=== PATIENT | male | born 1945 | race Caucasian/White ===

== ENCOUNTER → 2019-08-24 | Outpatient (CLI) | payer OTHER, MEDICARE ==
[~2019-08-24] MED LIST: ACYCLOVIR 800800 MG PO; AMARYL4 MG PO; CARDURA4 MG PO; COZAAR 25 MG TA25 M1 PO; DEMADEX20 MG PO; HYDRALAZINE 5050 MG PO; JARDIANCE10 MG PO; LIPITOR40 MG PO; METFORMIN HCL500 M1 PO; OMEPRAZOLE40 MG PO; POTASSIUM20 PO; VIREAD300 MG PO; XARELTO15 MG PO; XARELTO20 MG PO
== END ==
LOC: SJCVC 11:06
PROVIDERS: ATTEND Internal Medicine Cardiovascular Disease
DX: Z51.81 Encounter for therapeutic drug level monitoring (principal); I48.20 Chronic atrial fibrillation, unspecified; K21.9 Gastro-esophageal reflux disease without esophagitis; I25.10 Atherosclerotic heart disease of native coronary artery without angina pectoris; E11.22 Type 2 diabetes mellitus with diabetic chronic kidney disease; I12.9 Hypertensive chronic kidney disease with stage 1 through stage 4 chronic kidney disease, or unspecified chronic kidney disease; N18.3 Chronic kidney disease, stage 3 (moderate); E78.00 Pure hypercholesterolemia, unspecified; Z79.01 Long term (current) use of anticoagulants

== ENCOUNTER → 2019-08-27 | Outpatient (CLI) | payer OTHER, MEDICARE | LOC: SJCVCIMAG 11:01 | PROVIDERS: ATTEND Internal Medicine Cardiovascular Disease | DX: I08.8 Other rheumatic multiple valve diseases (principal); I27.20 Pulmonary hypertension, unspecified; J90 Pleural effusion, not elsewhere classified; I48.20 Chronic atrial fibrillation, unspecified; R00.1 Bradycardia, unspecified; I13.10 Hypertensive heart and chronic kidney disease without heart failure, with stage 1 through stage 4 chronic kidney disease, or unspecified chronic kidney disease; E11.22 Type 2 diabetes mellitus with diabetic chronic kidney disease; N18.3 Chronic kidney disease, stage 3 (moderate); R94.31 Abnormal electrocardiogram [ECG] [EKG]; I25.10 Atherosclerotic heart disease of native coronary artery without angina pectoris; R79.1 Abnormal coagulation profile; E78.00 Pure hypercholesterolemia, unspecified; B18.1 Chronic viral hepatitis B without delta-agent; I87.2 Venous insufficiency (chronic) (peripheral); I48.0 Paroxysmal atrial fibrillation; Z82.49 Family history of ischemic heart disease and other diseases of the circulatory system; Z79.899 Other long term (current) drug therapy; Z79.84 Long term (current) use of oral hypoglycemic drugs ==

== ENCOUNTER 2019-09-03 06:23 | Observation (INO) | payer OTHER, MEDICARE ==
[~2019-09-03] VITALS: Ht 177.8 cm; Wt 121.1 kg
[2019-09-03 07:39] VITALS: BP 152/66
[2019-09-03] MEDS ORDERED: ACYCLOVIR 800800 MG PO (07:45)
[2019-09-03] MEDS ORDERED: LIPITOR40 MG PO (07:45)
[2019-09-03] MEDS ORDERED: AMARYL4 MG PO (07:46)
[2019-09-03] MEDS ORDERED: CARDURA4 MG PO (07:46)
[2019-09-03] MEDS ORDERED: JARDIANCE10 MG PO (07:47)
[2019-09-03] MEDS ORDERED: HYDRALAZINE 5050 MG PO (07:47)
[2019-09-03] MEDS ORDERED: COZAAR 25 MG TA25 M1 PO (07:48)
[2019-09-03] MEDS ORDERED: POTASSIUM20 PO (07:49)
[2019-09-03] MEDS ORDERED: METFORMIN HCL500 M1 PO (07:49)
[2019-09-03] MEDS ORDERED: OMEPRAZOLE40 MG PO (07:49)
[2019-09-03] MEDS ORDERED: XARELTO20 MG PO (07:50)
[2019-09-03] MEDS ORDERED: DEMADEX20 MG PO (07:51)
[2019-09-03] MEDS ORDERED: VIREAD300 MG PO (07:51)
[2019-09-03 07:57] LABS: HEMATOCRIT 35.6 % (42.0-52.0); HEMOGLOBIN 11.9 gm/dL (14.0-18.0); MCH 32.9 pg (26.0-34.0); MCHC 33.4 g/dL (28.0-37.0); MCV 98.5 fL (80.0-100.0); RBC 3.62 mil/uL (4.50-6.00); RDW 17.2 % (10.5-14.5); WBC 4.4 thou/uL (4.0-11.0)
--- NOTE | 2019-09-03 08:17 | EKG ---
[facility] [place] [address] ELECTROCARDIOGRAM REPORT Name: BARBARA MERAZ Room #: [facility]..#: [id number] Admission: 09/03/19 Attend Phys: Karthikeyan Mcfadden MD, Discharge: Date of : 45 Report #: [id number] THIS REPORT FOR: cc: Ryan Kelly MD, Darren E. MD Lundgren,Jaspreet Palmer MD [facility] ~ THIS REPORT FOR: //name// [facility] Test Date: 2019-09-03 Test Time: 07:40:24 Pat Name: BARBARA MERAZ Department: Room: Gender: M [employer] Work[employer]: SBYAMEL : 1945 Requested By: Karthikeyan Mcfadden Order Number: [id number] MD: Jaspreet Zacarias Measurements Intervals [place] Rate: 59 P: VT: QRS: 27 QRSD: 96 T: 253 QT: 486 QTc: 482 Interpretive Statements Atrial fibrillation Low voltage, extremity leads Minimal ST depression, lateral leads Borderline prolonged QT interval Compared to ECG 02/21/2008 07:36:43 Atrial fibrillation has replaced sinus rhythm Electronically Signed On 09-03-2019 8:17:42 CDT by Jaspreet Zacarias [email or web address] <ELECTRONICALLY SIGNED> By: Jaspreet Zacarias MD, [facility] 09/03/19 0817 9 9 Jaspreet Zacarias MD, [facility] /EPI
[2019-09-03 08:18] LABS: CALCIUM 9.1 mg/dL (8.5-10.1); CREATININE 1.4 mg/dL (0.7-1.3); POTASSIUM 3.5 mmol/L (3.5-5.1)
[2019-09-03 08:20] LABS: INR 1.2; PROTIME 12.3 Seconds (9.3-11.4)
[2019-09-03 12:15] VITALS: BP 154/65
[2019-09-03 15:48] VITALS: BP 124/55
--- NOTE | 2019-09-03 18:14 | NUR ---
PT WAS ADMITTED AT 1215 FROM [facility], PT WAS SUPPOSED TO BE DISCHARGED, BUT THEY DECIDED TO KEEP HIM FOR AGGRESSIVE DIURESIS. PT GROIN SITE SOFT, DRY, PULSATILE, NO BLEEDING AND NO HEMATOMA. PT WAS OFF BEDREST AND UP TO CHAIR AT 1300. PT SITE CHECKS CONTINUED TO BE WNL. PT THIS EVENING CONCERNED ABOUT HEPATITIS MEDICATIONS, PAGED DR DAVILA AND ORDERS RECEIVED.
[2019-09-03 19:19] VITALS: BP 125/63
[2019-09-04 00:15] VITALS: BP 141/65
--- NOTE | 2019-09-04 03:36 | NUR ---
PT IS ALERT AND ORIENTED X4. DENIES ANY PAIN SOME EDUCATION DONE IN REGARDS TO CHF FLUID RESTRICTION NOTED. PLAN OF CARE DISCUSSED WITH PT. VOIDS PER URINAL AT BEDSIDE. UNDERSTANING A LITTLE BETTER WITH SOME EDUCATION GIVEN IN REGARDS TO DIAGNOSIS AND CARE PLAN GOALS. VERBALIZED UNDERSTANDING. WILL CONTINUE TO ASSESS AND MONITOR PER NURSING.
[2019-09-04 05:39] LABS: HEMOGLOBIN 11.1 gm/dL (14.0-18.0); MCH 32.2 pg (26.0-34.0); MCHC 32.7 g/dL (28.0-37.0); MCV 98.5 fL (80.0-100.0); RBC 3.45 mil/uL (4.50-6.00); RDW 17.5 % (10.5-14.5); WBC 3.9 thou/uL (4.0-11.0)
[2019-09-04 06:02] LABS: ALBUMIN 3.5 g/dL (3.4-5.0); CALCIUM 8.5 mg/dL (8.5-10.1); CREATININE 1.3 mg/dL (0.7-1.3); POTASSIUM 3.5 mmol/L (3.5-5.1); TOTAL BILIRUBIN 1.5 mg/dL (0.2-1.0); TOTAL PROTEIN 7.1 g/dL (6.4-8.2)
[2019-09-04 07:12] VITALS: BP 137/67
[2019-09-04] MEDS ORDERED: XARELTO15 MG PO (09:39)
[2019-09-04 10:23] VITALS: BP 137/67
--- NOTE | 2019-09-04 10:26 | NUR ---
TEL AND IV DISCONTINUED. PT UNDERSTANDS ALL FOLLOW UP ORDER AND MEDS. WILL DISCHARGE TO HOME WITH [facility] TO HOME VIA PRIVATE VEHICLE.
--- NOTE | 2019-09-04 18:44 | H ---
[facility] [place] [address] HISTORY AND PHYSICAL Name: BARBARA MERAZ Room #: 219-P [facility] Kala Marshall#: [id number] Admission: 09/03/19 Attend Phys: Karthikeyan Mcfadden MD, Discharge: 09/04/19 Date of : 45 Report #: [id number] THIS REPORT FOR: cc: Ryan Kelly MD, Darren E. MD Mancuso, Gerald M. MD [facility] ~ CC: Ryan Mcfadden DATE OF SERVICE: 09/03/2019 CARDIOLOGY HISTORY AND PHYSICAL HISTORY OF PRESENT ILLNESS: The patient is a 74-year-old male known to myself. He was brought to the catheterization lab this morning with some progressive dyspnea, shortness of breath and some chest pains. He has permanent atrial fibrillation, anticoagulated. His anticoagulant has been held for 48 hours. Last cardiac catheterization was 2008. There has been no prior coronary intervention. His ejection fraction has been mildly reduced. Subsequently, brought to the catheterization lab, which revealed significant pulmonary hypertension, presumably consistent with volume overload. PA pressure is running 96/38 with a pulmonary capillary wedge mean of 36, certainly consistent with significant volume overload and I suspect this is multifactorial, obesity, sleep apnea, diabetes, dietary indiscretion. He will be admitted for aggressive diuresis. He has significant orthopnea and PND. He is not really able to lay flat at night. He has been compliant with his medications. We have tried oral diuretics up to 40 of torsemide with marginal success obviously, as we have significant volume overload. CURRENT MEDICATIONS: Aspirin, atorvastatin 40, acyclovir, doxazosin 4, glimepiride 4, Jardiance 10, losartan 25, metformin 500 t.i.d., potassium, Xarelto 20 held, Ozempic, Viread, and torsemide 20. PAST MEDICAL HISTORY: Positive for coronary artery disease; mild cardiomyopathy; diabetes; sleep apnea; permanent AFib; hypertension; hypercholesterolemia; hepatitis B, he takes Viread for this; long history of recurrent diastolic dysfunction and tonsillectomy. SOCIAL HISTORY: He lives with a significant other. Never tobacco user. No alcohol use or drug use. One cup of coffee a day. No exercise. FAMILY HISTORY: Father had an infarct in his 50s. REVIEW OF SYSTEMS: Negative except for this progressive dyspnea, some orthopnea and some hesitancy and as stated above. [facility] [address] [place] [address] HISTORY AND PHYSICAL Name: BARBARA MERAZ Room #: 219-P [facility] Kala Marshall#: [id number] Admission: 09/03/19 Attend Phys: Karthikeyan Mcfadden MD, Discharge: 09/04/19 Date of : 45 Report #: [id number] PHYSICAL EXAMINATION: GENERAL: He is in no acute distress, but chronically dyspneic. VITAL SIGNS: Blood pressure is 180/90, pulse 70s and irregular. HEENT: Eyes reveal xanthelasmas. Pharynx is clear. NECK: Shows preserved upstrokes. 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 LUNGS: Clear anteriorly, but crackles in the bases and diminished. CARDIAC: Irregularly irregular, S1, S2 distant. ABDOMEN: Obese, nontender. EXTREMITIES: Reveal trace edema. Some venous stasis changes. NEUROLOGIC: Nonfocal. SKIN: Warm and dry without xanthoma or ulcer. MUSCULOSKELETAL: Generalized arthritic changes. ASSESSMENT: 1. Acute on chronic diastolic heart failure. 2. Severe pulmonary hypertension secondary to above. Right heart catheterization. PA pressure 96/36. Pulmonary capillary wedge mean 36. 3. Hypertension. 4. Hypercholesterolemia. 5. Sleep apnea. 6. Permanent atrial fibrillation. 7. Mild coronary artery disease, catheterization today. No intervention. RECOMMENDATIONS AND PLAN: We will admit for aggressive diuresis, mobilization of this fluid. I suspect we are having issues with elevated protimes due to passive congestion. Clears the interaction between Xarelto and protime INRs which have been elevated on the Xarelto, but they normalize off Xarelto. I have discussed this with Dr. Brandon of GI. We will ask hematology to weigh in. Daily weights, salt and fluid restriction, CCU for telemetry, electrolyte monitoring. Thank you for asking me to assist in the care of this patient. <ELECTRONICALLY SIGNED> By: Karthikeyan Mcfadden MD, FACC 09/04/19 1844 0942 1022 Karthikeyan Mcfadden MD, FACC /nt
--- NOTE | 2019-09-07 09:05 | CATHLAB ---
[facility] [place] [address] INVASIVE PROCEDURE REPORT Name: BARBARA MERAZ Room #: 219-P [facility] Kala Marshall#: [id number] Admission: 09/03/19 Attend Phys: Karthikeyan Mcfadden MD, Discharge: 09/04/19 Date of : 45 Report #: [id number] THIS REPORT FOR: cc: Ryan Kelly MD, Darren E. MD Mancuso, Gerald M. MD [facility] ~ APPROVED REPORT Study performed: 09/03/2019 07:41:07 Patient Details Patient Status: Out-Patient Room #: The patient is a 74 year-old male Event Personnel oYsvany Avina RN RN, Addi Jones RTR Renny Bob Sherra RTR Monitor, Karthikeyan Mcfadden Body Man Procedures Performed Art Access - R femoral artery* Wilberto Access - R femoral vein Right and Left Heart Cath w/or w/o Coronarie [id number] [facility] [id number] Initial Mod Sed Same Phys/QHP Gr [id number] 60000 Mod Sed Same Phys/QHP Ea [id number] Hemostasis w/ Mynx Indication Chest pain Procedure Narrative The Right Groin^ was infiltrated with subcutaneous anesthesia. A Right Heart Catheterization was performed with a 7 Fr. Leawood-Yonis catheter and pressure were recorded. Cardiac outputs were obtained by the Thermal Dilution method. A PINNACLE 6FR Sheath #[id number] sheath was inserted into the RFA 6 FR^. Coronary angiography was performed using coronary diagnostic catheters. The right coronary system was accessed and visualized with a JR4 catheter. The left coronary system was accessed and visualized with a JL4 catheter. The left ventricle was accessed and visualized with a PIGTAIL catheter. Left ventriculogram was performed in 30 degree projection. An aortogram of the abdominal aorta was performed. Closure device was deployed with a 6 Fr MYNXGRIP 6/7F #[id number]. The patient tolerated the procedure well and there were no complications associated with the procedure. There was no hematoma. Intraoperative Conscious Sedation [facility] [address] [place] [address] INVASIVE PROCEDURE REPORT Name: BARBARA MERAZ Room #: 219-P [facility] [place] [facility]#: [id number] Admission: 09/03/19 Attend Phys: Karthikeyan Mcfadden, Discharge: 09/04/19 Date of : 45 Report #: [id number] Sedation start time: 859 Case end Time: 946 Fentanyl 100 mcg Versed 2 mg Fluoro Time: 4.20 minutes Dose: DAP 8898.10 cGycm2 767 mGy Contrast Type and Amount: Visipaque 105 ml Hemodynamics The right atrial mean pressure is 33 mmHg. The right ventricular pressure is 94/22 mmHg. The pulmonary artery pressure is 90/38 mmHg with a mean of 58 mmHg. The mean pulmonary capillary wedge pressure is 40 mmHg. The aortic pressure is 172/93 mmHg with a mean of 124 mmHg. The left ventricular pressure is 178/16 mmHg with a mean of mmHg. The left ventricular end diastolic pressure is 29 mmHg. The cardiac output using thermo method is 7.70 L/min. The cardiac index using thermo method is 3.30 L/min/m2. Conclusion 1. Successful right heart catheterization with cardiac output by thermodilution see above hemodynamics. #2 left main large free of disease giving rise to LAD and circumflex #3 the LAD is mildly diseased in the mid distal vessel otherwise widely patent. It extends around the apex. #4 circumflex OM is nondominant with mild disease #5 dominant right coronary with mild irregularities PDA and MIKHAIL are small diffusely diseased. #6 normal left ventricular size ejection fraction mildly reduced EF in the 50% range. No wall motion abnormality Recommendations and plan: Continue aggressive risk factor modification. Will need aggressive diuresis. Transfer back to CCU instead stable condition. <ELECTRONICALLY SIGNED> By: Karthikeyan Mcfadden MD, FACC 09/07/19904 4 4 Karthikeyan Mcfadden MD, FACC /INF
== END 2019-09-04 11:41 | disposition home or self-care (01) ==
LOC: CATH 06:23 → 2N 12:26 → CATH 13:28 → 2N 09-04 11:41
PROVIDERS: Nurse Practitioner Adult Health; ADMIT Internal Medicine Cardiovascular Disease; ATTEND Internal Medicine Cardiovascular Disease
DX: I25.10 Atherosclerotic heart disease of native coronary artery without angina pectoris (principal); I11.0 Hypertensive heart disease with heart failure; I50.33 Acute on chronic diastolic (congestive) heart failure; I27.20 Pulmonary hypertension, unspecified; E78.00 Pure hypercholesterolemia, unspecified; I48.21 Permanent atrial fibrillation; G47.30 Sleep apnea, unspecified; I42.9 Cardiomyopathy, unspecified; Z86.19 Personal history of other infectious and parasitic diseases

== ENCOUNTER → 2019-10-07 | Outpatient (CLI) | payer OTHER, MEDICARE | LOC: SJCVC 12:01 | PROVIDERS: ATTEND Internal Medicine Cardiovascular Disease | DX: R94.31 Abnormal electrocardiogram [ECG] [EKG] (principal); I48.20 Chronic atrial fibrillation, unspecified; I25.10 Atherosclerotic heart disease of native coronary artery without angina pectoris; E11.9 Type 2 diabetes mellitus without complications; I87.2 Venous insufficiency (chronic) (peripheral); K76.9 Liver disease, unspecified; E78.00 Pure hypercholesterolemia, unspecified; I11.0 Hypertensive heart disease with heart failure; I50.9 Heart failure, unspecified; G47.33 Obstructive sleep apnea (adult) (pediatric); D68.59 Other primary thrombophilia; Z79.899 Other long term (current) drug therapy ==

== ENCOUNTER → 2019-10-28 | Outpatient (CLI) | payer OTHER, MEDICARE ==
[2019-10-28 10:08] LABS: CALCIUM 9.2 mg/dL (8.5-10.1); CREATININE 1.3 mg/dL (0.7-1.3); POTASSIUM 3.7 mmol/L (3.5-5.1)
== END ==
LOC: CAT 09:17
PROVIDERS: ATTEND Internal Medicine Cardiovascular Disease
DX: J90 Pleural effusion, not elsewhere classified (principal); I26.99 Other pulmonary embolism without acute cor pulmonale; Z01.812 Encounter for preprocedural laboratory examination; R16.0 Hepatomegaly, not elsewhere classified; I51.7 Cardiomegaly; I25.10 Atherosclerotic heart disease of native coronary artery without angina pectoris; R18.8 Other ascites; M47.814 Spondylosis without myelopathy or radiculopathy, thoracic region

== ENCOUNTER → 2019-10-29 | Outpatient (CLI) | payer OTHER, MEDICARE | LOC: SJCVCIMAG 08:10 | PROVIDERS: ATTEND Internal Medicine Cardiovascular Disease | DX: I07.1 Rheumatic tricuspid insufficiency (principal); I27.20 Pulmonary hypertension, unspecified; J90 Pleural effusion, not elsewhere classified; I25.10 Atherosclerotic heart disease of native coronary artery without angina pectoris; M79.89 Other specified soft tissue disorders; M79.604 Pain in right leg; M79.605 Pain in left leg; I48.20 Chronic atrial fibrillation, unspecified; E11.9 Type 2 diabetes mellitus without complications; I87.2 Venous insufficiency (chronic) (peripheral); K76.9 Liver disease, unspecified; I11.0 Hypertensive heart disease with heart failure; I50.9 Heart failure, unspecified; G47.33 Obstructive sleep apnea (adult) (pediatric); Z79.899 Other long term (current) drug therapy ==

== ENCOUNTER → 2019-11-04 | Outpatient (CLI) | payer OTHER, MEDICARE ==
[2019-11-04 12:01] LABS: ABSOLUTE NEUTROPHILS 3.6 thou/uL (1.4-8.2); BASOPHILS 0.4 % (0.0-2.0); EOSINOPHILS 1.2 % (0.0-3.0); HEMATOCRIT 33.8 % (42.0-52.0); LYMPHOCYTES 10.2 % (24.0-44.0); MCH 31.2 pg (26.0-34.0); MCHC 32.6 g/dL (28.0-37.0); MCV 95.4 fL (80.0-100.0); MONOCYTES 6.3 % (1.0-8.0); POLYS 81.9 % (36.0-66.0); RBC 3.54 mil/uL (4.50-6.00); RDW 15.9 % (10.5-14.5); WBC 4.4 thou/uL (4.0-11.0)
[2019-11-04 12:12] LABS: CALCIUM 9.2 mg/dL (8.5-10.1); CREATININE 1.5 mg/dL (0.7-1.3); POTASSIUM 3.8 mmol/L (3.5-5.1)
[2019-11-04 13:42] LABS: COLOR YELLOW; TOTAL VOLUME 55 mL
[2019-11-04 13:43] LABS: CLARITY HAZY; SOURCE CHEST FLUID
[2019-11-04 14:22] LABS: BF NUCLEATED CELLS 237 /mm3; BF RBC 1824 /mm3
[2019-11-04 15:05] LABS: PLATELET COUNT 105 thou/uL (150-400)
[2019-11-04 15:06] LABS: ANISOCYTOSIS 1+
[2019-11-04 15:32] LABS: BF MACROPHAGE 69 %; BF NEUTROPHILS 10 %
--- NOTE | 2019-11-05 16:06 | PATH ---
[facility] [address] [place] [address] PATHOLOGY RPT PROCEDURE Name: BARBARA MERAZ Room #: REG DEIDRA DoyleChad#: [id number] Admission: 11/04/19 Date of : 45 Discharge: Report #: [id number] Path Case #: [id number] Note [facility] Accession Number: [id number] TESTS RESULT FLAG UNITS REF RANGE LAB Clinician Provided Cytology Information No. of containers..01 Other (Miscellaneous) Source: RIGHT PLERUAL FLUID DIAGNOSIS: 02 RIGHT PLERUAL FLUID NEGATIVE FOR MALIGNANT EPITHELIAL CELLS. REACTIVE MESOTHELIAL CELLS ARE PRESENT. THIS INTERPRETATION INCLUDES EVALUATION OF A CELL BLOCK. Pathologist ICD10: 02 J90 Signed out by: 02 Verito Powers MD, Pathologist NPI- [id number] Performed by: Adams Dinh, Egg Gatherer ([facility]) Gross description: 01 20ML, HAZY YELLOW, 1 TP 1 CB /LCS 11/04/2019 1717 Local FLAG LEGEND: L-Low Normal,H-High Normal,LL-Alert Low,HH-Alert High <-Panic Low,>-Panic High,A-Abnormal,AA-Critical Abnormal Performed at: [address] [place] [address] Seamus Muñoz MD, [address] [address] Verito Powers MD, Specimen Comment: A courtesy copy of this report has been sent to [phone] Specimen Comment: [phone] Specimen Comment: Report sent to / DR SESAY Performed at: [address], [place], [place] [id number] MD Seamus Muñoz MD Phone: [phone]
[2019-11-06 17:07] LABS: BODY FLUID ALBUMIN 2.1 g/dL (Not Estab.); BODY FLUID AMYLASE 30 U/L (()); BODY FLUID GLUCOSE 162 mg/dL (()); BODY FLUID LDH 82 IU/L (()); BODY FLUID PROTEIN 3.2 g/dL (())
[2019-11-07 07:36] LABS: SOURCE CHEST
== END ==
LOC: ULTRA 11:30
PROVIDERS: ATTEND Internal Medicine Cardiovascular Disease
DX: R06.02 Shortness of breath (principal); J90 Pleural effusion, not elsewhere classified

== ENCOUNTER → 2019-11-12 | Outpatient (CLI) | payer OTHER, MEDICARE | LOC: RAD 15:25 | PROVIDERS: ATTEND Internal Medicine | DX: J90 Pleural effusion, not elsewhere classified (principal); I51.7 Cardiomegaly ==

== ENCOUNTER → 2019-11-17 | Outpatient (CLI) | payer OTHER, MEDICARE | LOC: ULTRA 08:50 | PROVIDERS: ATTEND Internal Medicine | DX: N28.1 Cyst of kidney, acquired (principal); K80.20 Calculus of gallbladder without cholecystitis without obstruction ==

== ENCOUNTER → 2019-12-09 | Outpatient (CLI) | payer OTHER, MEDICARE | LOC: RAD 15:16 | PROVIDERS: ATTEND Internal Medicine | DX: J90 Pleural effusion, not elsewhere classified (principal); R06.00 Dyspnea, unspecified ==

== ENCOUNTER → 2020-01-25 | Outpatient (CLI) | payer OTHER, MEDICARE | LOC: SJCVC 13:57 | PROVIDERS: ATTEND Internal Medicine Cardiovascular Disease | DX: R94.31 Abnormal electrocardiogram [ECG] [EKG] (principal); I25.10 Atherosclerotic heart disease of native coronary artery without angina pectoris; E11.22 Type 2 diabetes mellitus with diabetic chronic kidney disease; I12.9 Hypertensive chronic kidney disease with stage 1 through stage 4 chronic kidney disease, or unspecified chronic kidney disease; N18.30 Chronic kidney disease, stage 3 unspecified; E78.00 Pure hypercholesterolemia, unspecified; I27.20 Pulmonary hypertension, unspecified; I26.99 Other pulmonary embolism without acute cor pulmonale; I87.2 Venous insufficiency (chronic) (peripheral); K76.9 Liver disease, unspecified; I48.0 Paroxysmal atrial fibrillation; R00.1 Bradycardia, unspecified; R79.1 Abnormal coagulation profile; G47.33 Obstructive sleep apnea (adult) (pediatric); Z88.8 Allergy status to other drugs, medicaments and biological substances ==

== ENCOUNTER → 2020-03-10 | Outpatient (CLI) | payer OTHER, MEDICARE | LOC: RAD 10:24 | PROVIDERS: ATTEND Internal Medicine | DX: I51.7 Cardiomegaly (principal) ==

== ENCOUNTER → 2020-06-09 | Outpatient (CLI) | payer OTHER, MEDICARE | LOC: RAD 09:21 | PROVIDERS: ATTEND Internal Medicine | DX: R06.00 Dyspnea, unspecified (principal) ==

== ENCOUNTER → 2020-09-27 | Outpatient (CLI) | payer OTHER, MEDICARE | LOC: SJCVCIMAG 09:50 | PROVIDERS: ATTEND Internal Medicine Cardiovascular Disease | DX: I08.8 Other rheumatic multiple valve diseases (principal); R94.31 Abnormal electrocardiogram [ECG] [EKG]; I27.20 Pulmonary hypertension, unspecified; I25.10 Atherosclerotic heart disease of native coronary artery without angina pectoris; E78.00 Pure hypercholesterolemia, unspecified; I87.2 Venous insufficiency (chronic) (peripheral); D68.59 Other primary thrombophilia; I48.20 Chronic atrial fibrillation, unspecified; K76.9 Liver disease, unspecified; R00.1 Bradycardia, unspecified; E11.22 Type 2 diabetes mellitus with diabetic chronic kidney disease; I13.0 Hypertensive heart and chronic kidney disease with heart failure and stage 1 through stage 4 chronic kidney disease, or unspecified chronic kidney disease; I50.9 Heart failure, unspecified; N18.9 Chronic kidney disease, unspecified; G47.33 Obstructive sleep apnea (adult) (pediatric); I48.0 Paroxysmal atrial fibrillation; Z79.899 Other long term (current) drug therapy; Z82.49 Family history of ischemic heart disease and other diseases of the circulatory system; Z88.1 Allergy status to other antibiotic agents; Z88.8 Allergy status to other drugs, medicaments and biological substances ==

== ENCOUNTER → 2020-12-05 | Outpatient (CLI) | payer OTHER, MEDICARE | LOC: RAD 09:13 | PROVIDERS: ATTEND Internal Medicine | DX: I51.7 Cardiomegaly (principal); J98.4 Other disorders of lung ==

== ENCOUNTER → 2021-03-31 | Outpatient (CLI) | payer OTHER, MEDICARE | LOC: SJCVC 11:00 | PROVIDERS: ATTEND Internal Medicine Cardiovascular Disease | DX: R94.31 Abnormal electrocardiogram [ECG] [EKG] (principal); I49.3 Ventricular premature depolarization; I25.10 Atherosclerotic heart disease of native coronary artery without angina pectoris; I48.20 Chronic atrial fibrillation, unspecified; R00.1 Bradycardia, unspecified; E78.00 Pure hypercholesterolemia, unspecified; I12.9 Hypertensive chronic kidney disease with stage 1 through stage 4 chronic kidney disease, or unspecified chronic kidney disease; E11.22 Type 2 diabetes mellitus with diabetic chronic kidney disease; N18.9 Chronic kidney disease, unspecified; G47.33 Obstructive sleep apnea (adult) (pediatric); Z79.899 Other long term (current) drug therapy; Z88.8 Allergy status to other drugs, medicaments and biological substances; Z86.16 Personal history of COVID-19; Z82.49 Family history of ischemic heart disease and other diseases of the circulatory system ==